=== PATIENT | male | born 1945 | race Caucasian/White ===

== ENCOUNTER 2016-11-01 19:51 | Emergency (ER) | payer MEDICARE ==
[2016-11-01 19:52] VITALS: BMI 24.2
[2016-11-01 19:57] VITALS: BP 126/84; PULSE 72; TEMP 98; O2SAT 97
--- NOTE | 2016-11-01 20:15 | C.PDOC ---
History Of Present Illness 71 year old male patient presents to the ED complaining of intermittent right lower tooth pain for the past 1 month. Patient states the pain is localized and worse with pressure from chewing. Patient denies facial swelling, fever, chills , drooling, trismus, chest pain , shortness of breath, dyspnea, cough, denies any other active complaints. Ambulate to Ed for evaluation, not in any apparent distress.. Time Seen by Provider: 11/01/16 20:02 Chief Complaint (Nursing): Dental Pain History Per: Patient History/Exam Limitations: no limitations Onset/Duration Of Symptoms: Intermittent Episodes (1 month) Current Symptoms Are (Timing): Still Present Severity: Mild Pain Scale Rating Of: 3 Quality: Positive for: "Pain" Recent travel outside of the [place]: No Past Medical History Reviewed: Historical Data, Nursing Documentation, Vital Signs Vital Signs: Last Vital Signs Temp 98 F 11/01/16 19:54 Pulse 72 11/01/16 19:54 Resp 20 11/01/16 20:34 BP 126/84 11/01/16 19:54 Pulse Ox 97 11/01/16 20:28 - Medical History PMH: Asthma ( CHILD), COPD, HTN Surgical History: Endoscopy - [facility] Procedures SUPPLEMENT R INGUINAL REGION WITH SYNTH SUB, OPEN APPROACH (07/30/15) Family History: States: Unknown Family Hx - Social History Hx Tobacco Use: Yes (half a pack a day) Hx Alcohol Use: Yes (SOCIAL) Hx Substance Use: No - Immunization History Hx Tetanus Toxoid Vaccination: No Hx Influenza Vaccination: No Hx Pneumococcal Vaccination: No Review Of Systems Except As Marked, All Systems Reviewed And Found Negative. Constitutional: Negative for: Fever, Chills ENT: Positive for: Mouth Pain (right lower tooth pain). Negative for: Other ( drooling, trismus) Cardiovascular: Negative for: Chest Pain, Other (facial swelling) Respiratory: Negative for: Shortness of Breath Physical Exam - Physical Exam Appears: Well, Non-toxic, No Acute Distress Skin: Normal Color, Warm, No Rash Eye(s): bilateral: PERRL Ear(s): Bilateral: Normal Nose: No Discharge, No Epistaxis, No Deformity, No Tenderness Oral Mucosa: Moist, No Drooling, No Trismus Tongue: Normal Appearing Lips: Normal Appearing Teeth: Tender To Palpation (#30,31) Gingiva: Erythema (#30,31), Swelling (#30,31), Tender (#30,31), No Bleeding, Other (diffuse parodontosis) Throat: Normal, No Erythema, No Exudate, No Drooling Neck: Supple Respiratory: No Decreased Breath Sounds, No Accessory Muscle Use, No Rales, No Rhonchi, No Stridor, No Wheezing, No Plerual Rub Extremity: No Pedal Edema, No Deformity Neurological/Psych: Oriented x3, Normal Speech ED Course And Treatment O2 Sat by Pulse Oximetry: 97 (room air) Pulse Ox Interpretation: Normal Progress Note: On re-evaluation, pt is afebrile, hemnodynamicaly stable. Non- toxic. Tolerate Po well in ED. PulseOx 97% RA. ENT: exam c/w #30,31 gingivitis , toothache. No evidence of tooth abscess, trismus, drooling, dysphagia, dyspnea. Lungs: CTA B/L, BS equal B/L. CVS: +S1S2. Pt avdised on course of ds. ref. to F/u with Dentist in 2-3 days for re-eavl. return if any new changes. Disposition Counseled Patient/Family Regarding: Diagnosis, Need For Followup, Rx Given - Disposition Referrals: [facility] [Provider Group] [facility] [Provider Group] Disposition: HOME/ ROUTINE Disposition Time: 20:16 Condition: STABLE Additional Instructions: Take medication as prescribed Warm salty water tooth baths 2-3 times daily for 5 minutes Follow up with Dentist in 2-3 days for re-evaluation. Return to ED if any worsening or new changes. Prescriptions: Clindamycin [Cleocin] 300 mg PO Q6 #28 cap traMADol [Ultram] 50 mg PO TID #7 tab Instructions: Gingivitis (ED), Toothache (ED) - Clinical Impression Clinical Impression: Gingivitis - PA / MORNING BABYSITTER / Resident Statement MD/DO has reviewed & agrees with the documentation as recorded. - Scribe Statement The provider has reviewed the documentation as recorded by the Scribe Meghann Zacarias All medical record entries made by the Scribe were at my direction and personally dictated by me. I have reviewed the chart and agree that the record accurately reflects my personal performance of the history, physical exam, medical decision making, and the department course for this patient. I have also personally directed, reviewed, and agree with the discharge instructions and disposition.
[2016-11-01 20:35] VITALS: RESP 20
== END 2016-11-01 20:34 | disposition home or self-care (01) ==
LOC: C.ER 19:51
DX: K05.10 Chronic gingivitis, plaque induced (principal); Z72.0 Tobacco use

== ENCOUNTER 2017-06-15 07:20 | Day surgery (SDC) | payer MEDICARE ==
[2017-06-15 07:46] VITALS: BMI 21.2
[2017-06-15] MEDS ORDERED: Lactated Ringer's 500 ML IV ONE (10:54)
[2017-06-15] MEDS ORDERED: Propofol 10 mg/ml Inj (20 ML) ONE ×2 (10:56)
--- NOTE | 2017-06-15 10:58 | CP.SDSHP ---
Same Day Surgery H & P - History Proposed Procedure: EGD Pre-Op Diagnosis: abdominal pain - Previous Medical/Surgical History Cardiac: Hypertension - Allergies Allergies: Allergies No Known Allergies Allergy (Verified 11/01/16 19:57) - Physical Exam General Appearance: NAD Vital Signs: Vital Signs 06/15/17 07:48 Temperature 99.1 F Pulse Rate 91 H Respiratory 18 Rate Blood Pressure 114/75 O2 Sat by Pulse 97 Oximetry Mental Status: Alert & Oriented x3 Neuro: WNL Heart: WNL Lungs: WNL GI: WNL - {Optional Preform as Required} Abdomen: WNL - Impression Pt. Evaluated Today:Candidate for Anesthesia & Procedure: Yes - Date & Time Date: 06/15/17 Time: 10:58 Short Stay Discharge - Short Stay Discharge Admitting Diagnosis/Reason for Visit: ABDOMINAL PAIN Disposition: HOME/ ROUTINE
[2017-06-15] MEDS ORDERED: Lidocaine Hydrochloride 5 ML INJ ONE (10:59)
[2017-06-15 11:29] VITALS: TEMP 98.9
[2017-06-15 11:37] VITALS: O2SAT 99
[2017-06-15 13:26] VITALS: BP 132/82; PULSE 81; RESP 16
== END 2017-06-15 13:18 | disposition home or self-care (01) ==
LOC: C.ENDO 07:20
PROVIDERS: ATTEND Internal Medicine Gastroenterology
DX: K29.50 Unspecified chronic gastritis without bleeding (principal); K44.9 Diaphragmatic hernia without obstruction or gangrene; K29.80 Duodenitis without bleeding
CPT/HCPCS: 43239; 88305; J2704; J7120

== ENCOUNTER 2018-01-17 06:33 | Day surgery (SDC) | payer MEDICARE ==
[2017-11-17 12:45] VITALS: BMI 22.8
[2018-01-17] MEDS ORDERED: Propofol 10 mg/ml Inj (20 ML) ONE (08:49)
[2018-01-17] MEDS ORDERED: Midazolam 2 MG/2 ML VIAL ONE (08:49)
[2018-01-17] MEDS ORDERED: Lactated Ringer's 1,000 ML IV ONE (08:55)
[2018-01-17] MEDS ORDERED: ceFAZolin 1 gm in NS 1 GM/100 ML BAG IVPB ONE (09:00)
[2018-01-17] MEDS ORDERED: Neostigmine Methylsulfate 3mg/3ml Syringe IV ONE (09:26)
[2018-01-17] MEDS ORDERED: Bupivacaine 0.25% 20 ML INJ IJ ONE (09:51)
--- NOTE | 2018-01-17 10:05 | PCM.SURG1 ---
Surgeon's Initial Post Op Note - Surgeon's Notes Surgeon: radha Greeter Guest Services: 0 Type of Anesthesia: General Endo Anesthesia Administered By: barney Pre-Operative Diagnosis: left inguinal hernia Operative Findings: small indirect left inguinal hernia with sac, larger cord lipoma Post-Operative Diagnosis: same Operation Performed: lih with PHS mesh Specimen/Specimens Removed: lipoma Estimated Blood Loss: EBL {In ML}: 10 Blood Products Given: N/A Drains Used: No Drains Post-Op Condition: Good Date of Surgery/Procedure: 01/17/18 Time of Surgery/Procedure: 10:05
[2018-01-17] MEDS ORDERED: Oxycodone/Acetaminophen 5/325 mg Tab PO PRN (10:06)
[2018-01-17] MEDS ORDERED: Lactated Ringer's 1,000 ML IV SCH (10:15)
[2018-01-17] MEDS: HYDROmorphone 0.5 mg/0.5 ml ISec IVP PRN ×2 (10:25→12:00)
[2018-01-17 13:01] VITALS: RESP 16; O2SAT 95
[2018-01-17 13:57] VITALS: BP 115/69; PULSE 85; TEMP 98
--- NOTE | 2018-01-17 21:58 | OP ---
Copied To: Anshu Flynn Jr., MD Attending MD: Anshu Flynn Jr., MD PROCEDURE DATE: 01/17/2018 PREOPERATIVE DIAGNOSIS: Left inguinal hernia. POSTOPERATIVE DIAGNOSIS: Left inguinal hernia. PROCEDURE CARRIED OUT: Repair of left inguinal hernia with PHS, Prolene Hernia System, medium. SURGEON: Anshu Flynn Jr., MD [employer] OPERATOR: None ANESTHESIOLOGIST: Dr. Contreras. INDICATIONS: The patient is an older middle-aged man who presents with symptomatic left inguinal hernia. OPERATIVE FINDINGS: There was a small indirect indwelling inguinal hernia and there was a further large lipoma of the cord. The sac was not removed. The portion of the lipoma was and this was inverted back into the peritoneal cavity. A medium-sized PHS, Prolene Hernia System was deployed in the preperitoneal space, sutured and stapled to the surrounding tissues. External oblique was closed. Skin was closed with subcuticular closure. Marcaine was injected. Blood loss for the procedure was 10 mL. OPERATION CARRIED OUT: Repair of indirect left inguinal hernia with PHS, Prolene Hernia System. Anshu Flynn Jr., MD cc: Jeannette Bond MD
== END 2018-01-17 14:05 | disposition home or self-care (01) ==
LOC: C.SDS 06:33
PROVIDERS: ATTEND Surgery Vascular Surgery
DX: K40.90 Unilateral inguinal hernia, without obstruction or gangrene, not specified as recurrent (principal)
CPT/HCPCS: 49505; 88304; J0690; J1100; J1170; J2001; J2250; J2405; J2704; J2710; J3010; J7120

== ENCOUNTER 2018-06-14 10:33 | Outpatient (CLI) | payer MEDICARE | END 2018-06-14 10:34 | disposition home or self-care (01) | LOC: C.LAB 10:33 | DX: R73.9 Hyperglycemia, unspecified (principal); R53.82 Chronic fatigue, unspecified; R35.0 Frequency of micturition ==

== ENCOUNTER 2018-09-11 16:31 | Outpatient (CLI) | payer MEDICARE | END 2018-09-11 16:32 | disposition home or self-care (01) | LOC: C.USIC 16:31 ==

== ENCOUNTER 2018-09-13 06:28 | Day surgery (SDC) | payer MEDICARE ==
[2017-11-17 12:44] VITALS: BMI 22.8
[2018-09-13] MEDS ORDERED: Lactated Ringer's 500 ML IV ONE ×2 (07:59)
[2018-09-13] MEDS ORDERED: ePHEDrine 50 mg/ml Inj ONE (08:13)
[2018-09-13] MEDS ORDERED: Propofol 10 mg/ml Inj (20 ML) ONE (08:13)
--- NOTE | 2018-09-13 08:13 | CP.SDSHP ---
Same Day Surgery H & P - History Proposed Procedure: endoscopy Pre-Op Diagnosis: epig pain - Previous Medical/Surgical History Cardiac: Hypertension - Allergies Allergies: Allergies No Known Allergies Allergy (Verified 11/01/16 19:57) - Physical Exam Vital Signs: Vital Signs 09/13/18 06:44 Temperature 99.3 F Pulse Rate 75 Respiratory 19 Rate Blood Pressure 127/77 O2 Sat by Pulse 97 Oximetry Mental Status: Alert & Oriented x3 Neuro: WNL Heart: WNL Lungs: WNL - {Optional Preform as Required} Abdomen: WNL - Impression Impression: gastrtiis Pt. Evaluated Today:Candidate for Anesthesia & Procedure: Yes - Date & Time Date: 09/13/18 Time: 08:00 Short Stay Discharge - Short Stay Discharge Admitting Diagnosis/Reason for Visit: EPIGASTRIC PAIN Disposition: HOME/ ROUTINE
[2018-09-13 08:45] VITALS: TEMP 98
[2018-09-13 08:56] VITALS: O2SAT 97
[2018-09-13 09:43] VITALS: BP 128/701; PULSE 71; RESP 17
== END 2018-09-13 09:36 | disposition home or self-care (01) ==
LOC: C.ENDO 06:28
PROVIDERS: ATTEND Internal Medicine Gastroenterology
DX: R10.84 Generalized abdominal pain (principal); K25.9 Gastric ulcer, unspecified as acute or chronic, without hemorrhage or perforation; K29.70 Gastritis, unspecified, without bleeding
CPT/HCPCS: 43239; 88305; J2001; J2704; J7120

== ENCOUNTER 2018-09-26 09:49 | Outpatient (CLI) | payer MEDICARE | END 2018-09-26 09:50 | disposition home or self-care (01) | LOC: C.USIC 09:49 | DX: R10.11 Right upper quadrant pain (principal); K76.0 Fatty (change of) liver, not elsewhere classified ==